=== PATIENT | female | born 1950 ===

== ENCOUNTER 2025-02-21 15:16 | Outpatient (REF) | payer MEDICARE, BC, SELFPAY ==
--- OUTSIDE RECORDS SUMMARY | 2025-02-21 09:44 | XMS_ITS | Clinical Summary ---
Author Organization [facility] Address [address] [address] Care Team Providers Care Oracle Manager Name Role Phone Rabia Cantu Primary Care Provider [phone] Allergies Active Allergy Reactions Criticality Noted Date Comments Cefazolin 08/07/2017 Doxycycline 08/07/2017 Famciclovir 08/07/2017 Gabapentin 08/07/2017 Hydroxyzine Hcl 08/07/2017 Latex, Natural Rubber 08/07/2017 Levothyroxine 08/07/2017 Lisinopril 08/07/2017 Pantoprazole 08/07/2017 Penicillins 08/07/2017 Sulfa (Sulfonamide Antibiotics) 04/2017 Medications ranitidine (ZANTAC) 150 MG capsule 7 Active SYNTHROID 100 mcg tablet 7 Active butalbital-acet aminophen-caff 50-300-40 mg cap 7 Active losartan (COZAAR) 100 MG tablet 0 9 Active famotidine (PEPCID) 10 MG tablet TAKE 1 TABLET BY MOUTH TWICE DAILY 0 Active busPIRone (BUSPAR) 10 MG tablet 7 Active busPIRone (BUSPAR) 10 MG tablet TAKE 1 TABLET BY MOUTH ONCE DAILY 0 Active clotrimazole (LOTRIMIN) 1 % cream APPLY 1 APPLICATION TOPICALLY BID 0 Active mupirocin (BACTROBAN) 2 % ointment APPLY TOPICALLY TO OPEN SKIN TWICE DAILY TO PROMOTE HEALING 0 Active omeprazole (PriLOSEC) 20 MG capsule TAKE 1 CAPSULE BY MOUTH TWICE DAILY FOR 30 DAYS 0 Active Social History Tobacco Use Types Packs/Day Years Used Date Smoking Tobacco: Former Smokeless Tobacco: Never Tobacco Cessation:Counseling Given: No Comments No Sex and Gender Information Value Date Recorded Sex Assigned at Not on file Legal Sex Female 2:51 PM EST Gender Identity Not on file Sexual Orientation Not on file Last Filed Vital Signs Vital Sign Reading Time Taken Comments Blood Pressure 128/76 03/04/2020 4:32 PM EDT Pulse 80 03/04/2020 4:32 PM EDT Temperature 36.3 C (97.4 F) 03/04/2020 4:32 PM EDT Respiratory Rate 16 03/04/2020 4:32 PM EDT Oxygen Saturation 97% 03/04/2020 4:32 PM EDT Inhaled Oxygen Concentration - - Weight 77.1 kg (170 lb) 04/14/2019 12:02 PM EDT Height - - Body Mass Index - - Plan of Treatment Health Maintenance Due Date Last Done Comments Depression: Screening Annual ly using PHQ-2/9 in Adults 18 yrs or above (or HM Modifier)([facility]) 1967 Hepatitis C Virus Infection in Adolescents and Adults: Screening (or Modifier) ([facility]) 1967 TANI Screening: Once using ST OP-BANG Questionnaire for Adults with Conditions or high BMI([facility]) 1967 SDOH Screening Reminder: Niecy yesikallfred for all adults ([facility]) 1967 Tobacco Smoking Cessation: i n Adults excluding Women: Behavioral and Pharmacotherapy Interventions ([facility]) 1967 DTaP/Tdap/Td Vaccines ([facility]) (1 - Tdap) 02/12/1968 Lung Cancer: Screening Annua lly in adults aged 50 to 80 years (or HM Modifiers)([facility]) 1999 Pneumococcal Vaccination Scr eening: Patients 50+ yrs of age ([facility]) (1 of 1 - PCV) 1999 Zoster/Shingles Vaccine Seri es Screening: Adults aged 18+ yrs (or HM Modifiers)([facility]) (1 of 2) 1999 Osteoporosis Screening to Pr event Fractures: Women aged 65 years+ ([facility]) 2014 RSV Vaccines (1 - 1-dose 75+ series) 02/12/2024 COVID-19 Vaccine Screening: Initial Series and Booster Status ([facility]) ( - 2023- season) 2024 Flu Vaccination: Ages 65+: Y early High Dose Recommended (or Modifier)([facility]) 03/30/2025 Medical Devices Not on file Insurance MEDICARE [facility] Care Teams Oracle Manager Relationship Specialty Start Date End Date Rabia Cantu PA [address] [place] [address] PCP - Elevator Mechanic 04/14/19
== END 2025-02-21 15:17 | disposition home or self-care (01) ==
LOC: HO.HOSX 15:16
PROVIDERS: Visit Provider Orthopaedic Surgery
DX: Z13.89 Encounter for screening for other disorder (principal)

== ENCOUNTER 2025-03-20 09:50 | Outpatient (REF) | payer MEDICARE, BC, SELFPAY ==
--- OUTSIDE RECORDS SUMMARY | 2025-03-21 10:30 | XMS_ITS | Clinical Summary ---
Author Organization [facility] Address [id number] [place] [phone] Care Team Providers Care Geology Associate Name Role Phone Marta Méndez MD Primary Care Provider [phone] Surgical History Surgery Date Site/Laterality Comments JOINT [...] Documents on File Type Date Recorded Patient Cash Person Expl anation Health Care Decision (hx) 11/03/2021 KAITLIN CARRASCO DIRECTIVE Care Teams Geology Associate Relationship Specialty Start Date End Date Marta Méndez MD [address] [place] PCP - General Internal Medicine 05/04/17
--- OUTSIDE RECORDS SUMMARY | 2025-03-21 10:30 | XMS_ITS | Clinical Summary ---
Author Organization [employer] [facility] Address [address] [place] [address] Care Team Providers Care Tool And Die Maker Level Five Name Role Phone Rabia Cantu Primary Care Provider [phone] Allergies Active Allergy Reactions Criticality Noted Date [...] Adults 18 yrs or above (or HM Modifier)([facility]) 1967 Hepatitis C Virus Infection in Adolescents and Adults: Screening (or Modifier) ([facility]) 1967 TANI Screening: Once using ST OP-BANG Questionnaire for Adults with Conditions or high BMI([facility]) 1967 SDOH Screening Reminder: Niecy yesikallfred for all adults ([facility]) 1967 Tobacco Smoking Cessation: i n Adults excluding Women: Behavioral and Pharmacotherapy Interventions ([facility]) 1967 DTaP/Tdap/Td Vaccines ([facility]) (1 - Tdap) 02/12/1968 Lung Cancer: Screening Annua lly in adults aged 50 to 80 years (or HM Modifiers)([facility]) 1999 Pneumococcal Vaccination Scr eening: Patients 50+ yrs of age ([facility]) (1 of 1 - PCV) 1999 Zoster/Shingles Vaccine Seri es Screening: Adults aged 18+ yrs (or HM Modifiers)([facility]) (1 of 2) 1999 Osteoporosis Screening to Pr event Fractures: Women aged 65 years+ ([facility]) 2014 RSV Vaccines (1 - 1-dose 75+ series) 02/12/2024 COVID-19 Vaccine Screening: Initial Series and Booster Status ([facility]) ( - 2023- season) 2024 Flu Vaccination: Ages 65+: Y early High Dose Recommended (or Modifier)([facility]) 03/30/2025 Medical Devices Not on file Insurance MEDICARE [facility] Care Teams Tool And Die Maker Level Five Relationship Specialty Start Date End Date Rabia Cantu PA [address] [place] [address] PCP - Analytics Associate 04/14/19
--- OUTSIDE RECORDS SUMMARY | 2025-03-21 10:30 | XMS_ITS | Encounter Summary ---
Author Organization [facility] Address [address] [place] [address] Care Team Providers Care Hair Spring Winder Name Role Phone Rabia Cantu Primary Care Provider [phone] Murray Jimenez MD Unavailable Nancy Gotti MD Unavailable [phone] Encounter Details Date Type Department Care Team (Late st Contact Info) Description 02/23/2023 Scanned Document [facility] [address] [phone] Murray Jimenez MD [address] [place] [place] [id number] Social History Tobacco Use Types Packs/Day Years [...] Orientation Heterosexual (straight) 01/12 10:53 AM EDT COVID-19 Exposure Response Date Recorded In the last 10 days, have yo u been in contact with someone who was confirmed or suspected to have Coronavirus/COVID-19? No / Unsure 02/02/2023 5:44 AM EDT documented as of this encounter Plan of Treatment Upcoming Encounters Date Type Department Care Team (Late st Contact Info) Description 06/20/2025 10:00 AM EDT Office Visit [facility] [address] [phone] Murray Jimenez MD [address] [place] [phone] documented as of this encounter Visit Diagnoses Not on filedocumented in this encounter Care Teams Hair Spring Winder Relationship Specialty Start Date End Date Rabia Cantu PA [address] [place] [address] PCP - General Family Medicine 01/12/23 Murray Jimenez MD [address] [place] [phone] Surgery, Orthopedic 01/12/23 Nancy Gotti MD [address] [address] Dermatology 01/14/23 documented as of this encounter
--- OUTSIDE RECORDS SUMMARY | 2025-03-21 10:30 | XMS_ITS | Clinical Summary ---
Author Organization [facility] Address [address] [place], [place] [id number] Phone Care Team Providers Care Editorial Director Name Role Phone Marta Méndez MD Primary [...] topic Medical Devices Not on file Insurance [facility] MEDICARE PART A & B Member Subscriber Plan / Payer (Ef fective 2014-Present) Name:Marycarmen Regalado Member ID:[id number] Relation to Subscriber:Self Name:Marycarmen Regalado Subscriber ID:[id number] Payer ID:[id number] Group ID:Not on file Type:Medicare Address: [facility] [employer] [email or web address] [address] [place] [address] [facility] MEDICARE PART A & B MEDICARE PART A & B MEDICARE PART A & B [facility] MEDICARE PART A & B [facility] MEDICARE PART A & B [facility] MEDICARE PART A & B MEDICARE PART A & B [facility] MEDICARE PART A & B Member Subscriber Plan / Payer ( fective 2014-Present) Name:Marycarmen Regalado Member ID:[id number] Relation to Subscriber:Self Name:Marycarmen Regalado Subscriber ID:[id number] Payer ID:[id number] Group ID:Not on file Type:Medicare Address: [facility] [employer] [email or web address] [address] [place] [address] Care Teams Editorial Director Relationship Specialty Start Date End Date Marta Méndez MD [address] [place] [address] PCP - General 10/12/16 Additional Source Comments The information contained in this document represents components of the legal health record. It is not the complete legal health record.[facility]
--- OUTSIDE RECORDS SUMMARY | 2025-03-21 10:31 | XMS_ITS | Clinical Summary ---
Author Organization [facility] Address [address] [place] [address] Care Team Providers Care Safety And Security Manager Name Role Phone Marta Méndez MD Primary [...] (ZANTAC) 150 MG capsule 0 06/22/2017 Active Zttsxngubi-GTCX-Edk feine 50-300-40 MG CAPS 0 06/01/2017 Active [...] age to complete this topic Care Teams Safety And Security Manager Relationship Specialty Start Date End Date Marta Méndez MD [address] [place] [phone] PCP - General Internal Medicine 05/04/17
== END 2025-03-20 09:51 | disposition home or self-care (01) ==
LOC: HO.HOSX 09:50
PROVIDERS: Visit Provider Orthopaedic Surgery
DX: M25.552 Pain in left hip (principal); Z79.899 Other long term (current) drug therapy
CPT/HCPCS: 99212

== ENCOUNTER 2025-03-20 13:34 | Outpatient (AMB) | payer MEDICARE, BC, SELFPAY ==
--- OUTSIDE RECORDS SUMMARY | 2025-03-16 23:59 | XMS_ITS | Continuity of Care Document ---
Author Organization [facility] Address [address] [place] [address]- Care Team Providers Care Front Office Administrator Name Role Phone Lenny NEUMANN, Aniceto Primary Care Physician Encounter [facility] Date(s): 02/14/25 - 03/16/25 [facility] [address], [place] [address] Encounter Type: Triage Allergies, Adverse Reactions, Alerts Substance Criticality Severity Reaction Reaction Severity Status doxycycline 1 Active nitrofurantoin 2 Act noe lisinopril Active gabapentin Active penicillins Active sulfa drugs Active Famvir Active Ancef rash Active hydrOXYzine hydrochloride Active pantoprazole Levothyroxine s odium 50mcg tablet Active Latex Active 1hives 2rash Immunizations Given and Recorded Vaccine Date Status Refusal Reason pneumococcal 23-valent vaccine 1 06/07/23 Given SARS-CoV-2 (COVID-19) mRNA-1273 vaccine 08/14/21 R ecorded SARS-CoV-2 (COVID-19) mRNA-1273 vaccine 12/23/20 R ecorded SARS-CoV-2 (COVID-19) mRNA-1273 vaccine 10/25/20 R ecorded influenza virus vaccine, inactivated 05/24/19 Lucio rded pneumococcal 13-valent vaccine 2 12/26/18 Given tetanus-diphtheria toxoids (Td) 04/30/11 Given 1Result Comment: [facility] [id number] 2Result Comment: [facility] [id number] Medications Acetaminophen 0 Refills, Maintenance, 08/20/21 1:51:00 PM EST, Partial fill upon patient request if the prescription is for a schedule II opioid drug. Start Date: 08/20/21 Status: Ordered Repeat number: 1 busPIRone 10 mg oral tablet 1, tablet, By Mouth, Daily, # 90 tablet, Refills 3, Tot. Refills 3, Maintenance, 10/20/24 11:16:00 AM EST, Route to Pharmacy Electronically, [facility] #[id number], 150, cm, 10/20/24 10:44:00 EST, Height, 79.5, kg, 04/21/23 15:22:00 EDT, Dry Weight Start Date: 10/20/24 Status: Ordered Quantity: 90.0 Unit: tablet Repeat number: 4 capsaicin 0.025% topical cream 1 application, Topically, 2 times a day, avoid contact with face and eyes to affected area, # 45 Gm, 3 Refills, Acute 02/14/26 6:00:00 PM EDT, 02/14/25 1:06:00 PM EDT, Cream, [facility] #[id number], Partial fill upon patient request if the prescription is for a schedule II opioid drug., 1 application Topically 2 times a day,Instr:avoid contact with face and eyes; to affected area, 150, cm, 02/14/25 12:36:00 EDT, Height, 79.5, kg, 12/27/24 15:56:00 EDT, Dry Weight Start Date: 02/14/25 Stop Date: 02/14/26 Status: Ordered Quantity: 45.0 Unit: g Repeat number: 4 Dupixent Pre-filled Syringe Subcutaneous Infusion, Once, PRN Rx by Daly THIBODEAUX security project manager, 0 Refills, Maintenance, 01/26/23 12:55:00 PM EDT, Partial fill upon patient request if the prescription is for a schedule II opioid drug. Start Date: 01/26/23 Status: Ordered Repeat number: 1 famotidine 20 mg oral tablet 20 mg, 1, tablet, By Mouth, 2 times a day, # 180 tablet, Refills 0, Tot. Refills 0, Maintenance, 02/14/25 1:17:00 PM EDT, Route to Pharmacy Electronically, [facility] #[id number], Partial fill upon patient request if the prescription is for a schedule II opioid drug., 150, cm, 02/14/25 12:36:00EDT, Height, 79.5, kg, 12/27/24 15:56:00 EDT, Dry Weight Start Date: 02/14/25 Status: Ordered Quantity: 180.0 Unit: tablet Repeat number: 1 Fioricet oral capsule 1 capsule, By Mouth, Every 4 hours, PRN as needed, # 9 capsule, 0 Refills, Maintenance, 10/20/24 11:25:00 AM EST, Capsule, [facility] #[id number], 1 capsule By Mouth Every 4 hours,PRN:as needed, 150, cm, 10/20/24 10:44:00 EST, Height, 79.5, kg, 04/21/23 15:22:00 EDT, Dry Weight Start Date: 10/20/24 Status: Ordered Quantity: 9.0 Unit: capsule Repeat number: 1 Leidy Cream Leidy Cream, Refills 0, Maintenance, 07/13/23 3:21:00 PM EST, Supply Start Date: 07/13/23 Status: Ordered Repeat number: 1 LORazepam 0.5 mg oral tablet 1 -2 tablet, By Mouth, crew caller to Procedure, # 5 tablet, 0 Refills, Soft Stop, 08/05/23 12:10:00 PM EST, Tablet, [facility] #[id number], Partial fill upon patient request if the prescription is for a schedule II opioid drug., 150, cm, 07/27/23 16:14:00 EST, Height, 79.5, kg, 04/21/23 15:22:00 EDT, Dry Weight Start Date: 08/05/23 Status: Ordered Quantity: 5.0 Unit: tablet Repeat number: 1 losartan 25 mg oral tablet 25 mg, 1, tablet, By Mouth, Daily, # 90 tablet, Refills 2, Tot. Refills 2, Maintenance, 12/19/24 4:31:00 PM EDT, Route to Pharmacy Electronically, [facility] #[id number], Partial fill upon patient request if the prescription is for a schedule II opioid drug., 150, cm, 12/19/24 16:30:00 EDT, Height, 79.5, kg, 04/21/23 15:22:00 EDT, Dry Weight Start Date: 12/19/24 Status: Ordered Quantity: 90.0 Unit: tablet Repeat number: 3 Multivitamin Daily, 0 Refills, Maintenance, 12/19/18 3:00:09 PM EDT Start Date: 12/19/18 Status: Ordered Repeat number: 1 nystatin topical [id number] u/gm cream 1 application, Topically, 2 times a day, apply under breasts, # 30 Gm, 3 Refills, Acute 10/06/25 8:00:00 AM EST, 02/01/25 5:19:00 PM EDT, Cream, [facility] #[id number], Partial fill upon patient request if the prescription is for a schedule II opioid drug., 1 application Topically 2 times a day,Instr:apply under breasts, 150, cm, 01/05/25 16:38:00 EDT, Height, 79.5, kg, 12/27/24 15:56:00 EDT, Dry Weight Start Date: 02/01/25 Stop Date: 10/06/25 Status: Ordered Quantity: 30.0 Unit: g Repeat number: 4 Indications: Tinea corporis; pantoprazole 20 mg oral delayed release tablet 1 tablet = 20 mg, By Mouth, Daily, # 90 tablet, 3 Refills, Maintenance, 12/21/24 9:41:00 PM EDT, CR Tablet, 150, cm, 12/19/24 16:30:00 EDT, Height, 79.5, kg, 04/21/23 15:22:00 EDT, Dry Weight Start Date: 12/21/24 Status: Ordered Quantity: 90.0 Unit: tablet Repeat number: 4 Synthroid 0.1 mg oral tablet 1 tablet = 100 mcg, By Mouth, Daily, Brand name medically necessary no substitutions emergency supply until mail order comes in, # 90 tablet, 1 Refills, Maintenance, 02/06/25 11:19:00 AM EDT, [facility], 150, cm, 01/05/25 16:38:00 EDT, Height, 79.5, kg, 12/27/24 15:56:00 EDT, Dry Weight Start Date: 02/06/25 Stop Date: 08/05/25 Status: Ordered Quantity: 90.0 Unit: tablet Repeat number: 2 traMADol 50 mg oral tablet 0.5 tablet = 25 mg, By Mouth, Every 8 hours, PRN Pain , Moderate, # 42 tablet, 0 Refills, Maintenance, 01/31/25 1:18:00 PM EDT, [facility] #[id number], Partial fill upon patient request if the prescription is for a schedule II opioid drug., 150, cm, 01/05/25 16:38:00 EDT, Height, 79.5, kg, 12/27/24 15:56:00 EDT, Dry Weight Start Date: 01/31/25 Stop Date: 02/28/25 Status: Ordered Quantity: 42.0 Unit: tablet Repeat number: 1 triamcinolone 0.025% topical cream 1 applicator, Topically, 2 times a day, apply a thin film, # 60 Gm, 1 Refills, Maintenance, :28:00 PM EDT, Cream, [facility] #[id number], 1 applicator Topically 2 times a day,Instr:apply a thin film, 150, cm, 12/19/24 16:12:00 EDT, Height, 79.5, kg, 04/21/23 15:22:00 EDT, Dry Weight Start Date: 12/19/24 Status: Ordered Quantity: 60.0 Unit: g Repeat number: 2 Vitamin D3 5000 intl units oral tablet 1 tablet = 125 mcg, By Mouth, Daily, # 30 tablet, 0 Refills, Maintenance, 03/04/23 5:00:00 PM EDT, Tablet, [facility] #[id number], Partial fill upon patient request if the prescription is for a schedule II opioid drug., 154.94, cm, 02/22/23 8:55:00 EDT, Height, 85.5, kg, 02/21/23 3:45:00 EDT, Dry Weight Start Date: 03/04/23 Status: Ordered Quantity: 30.0 Unit: tablet Repeat number: 1 Problem List Condition Confirmation Course Effective Dates Status H ealth Status Informant Trigger finger of right hand Confirmed Active Leiomyoma- s/p removal from [facility] in 1998 1 Confirmed Active Carpal tunnel syndrome Confirmed Active Stage 2 chronic kidney disease Confirmed Active Decreased hearing Confirmed Active Depression Confirmed Active Family history of thyroid problem Confirmed Active Femur fracture, left Confirmed Active Fracture of femur Confirmed Active GERD (gastroesophageal reflux disease) Confirmed Active MAYKEL (generalized anxiety disorder) Confirmed Active Glaucoma Confirmed Active History of knee replacement- needs abx prior to invasive procedures Confirmed Active Hyperlipidemia Confirmed Active Hypertension Confirmed Active Hypothyroidism Confirmed Active Hypothyroidism Confirmed Active Lichen planus Confirmed Active Lichenoid dermatitis Confirmed Active Migraines Confirmed Active Osteoarthritis 2, 3 Confirmed Active Osteoarthritis of left hip Confirmed Active Osteopenia Confirmed Active Osteoporosis Confirmed Active Chronic pain of left lower extremity Confirmed Active Recurrent kidney stones Confirmed Active Severe obesity Confirmed Active 1s/p GI bleed prior to resection 2c4-c7 with posterior osteophytes 3bilateral knees Social History Social History Type Response Smoking Status Former smoker; Other : quit smoking 1999; entered on: 11/26/14 Sex Sex Representation Female (finding) Implantable Device List Procedure Provider Procedure Date Device Type Site Phacoemulsification Cataract with Yandel Basilio MD 06/18/20 Unknown Eye Left Device Identifier Serial Number Lot or Batch Number Manufacturing Date Expiration Date Distinct Identification Code MRI Safety Implantable Status Assigning Authority Unknown [id number] Unknown Unknown 06/29/23 Unknown Unknown Active Unknown Procedure Provider Procedure Date Device Type Site Phacoemulsification Cataract with Yandel Basilio MD 05/24/20 Unknown Eye Right Device Identifier Serial Number Lot or Batch Number Manufacturing Date Expiration Date Distinct Identification Code MRI Safety Implantable Status Assigning Authority Unknown [id number] Unknown Unknown 03/29/24 Unknown Unknown Active Unknown Patient Care team information Care Team Personnel Name: Aniceto Galvez NP Position: [facility] PCO Associate Professional Member Role: PCP Address: [address] [place] [address] Telecom: Name: Agatha Jimenez RN Position: [facility] SN RN Member Role: Primary Care Nurse Care Team Related Persons Name: LOGAN PENN Name: FRANCIS COLLIER Name: ANAT COLLIER Insurance Providers Guarantor name: HIWOT COLLIER [facility] Information #: 1 Payer: MEDICARE B Payer Identifier: NA Member Number: [id number] Group Number: [id number] Subscriber Identifier: [id number] Relationship to Subscriber: self Coverage Type: NA Coverage Verification Date: NA Telecom: NA Address: Health Plan Information #: 2 Payer: [facility] Payer Identifier: NA Member Number: [id number] Group Number: [id number] Subscriber Identifier: [id number] Relationship to Subscriber: self Coverage Type: Medicare Other Coverage Verification Date: NA Telecom: NA Address: NA
[2025-03-20 13:54] VITALS: BMI 29.3
--- NOTE | 2025-03-20 13:54 | A.OFFVIS_ITS ---
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 The patient did undergo left total knee replacement surgery several years ago. She subsequently suffered a left total knee arthroplasty periprosthetic fracture which was treated with a lateral femoral plate. Apparently that plate fixation failed and she subsequently underwent revision fracture surgery involving a retrograde nail at [facility]. She describes her hip pain as sharp in nature. Allergies Penicillins Allergy (Severe, Verified 03/20/25 13:56) Unconscious Sulfa (Sulfonamide Antibiotics) Allergy (Severe, Verified 03/20/25 13:56) Unknown latex Allergy (Mild, Verified 03/20/25 13:56) Rash metals Allergy (Unknown, Uncoded 05/05/23 13:35) Unknown Medication List - Last Reconciled 03/20/25 by Mike Lou MD buspirone 10 mg PO DAILY famotidine 20 mg PO BID losartan 25 mg PO DAILY metoprolol tartrate 50 mg PO DAILY tramadol 25 mg PO Q8H PRN Physical Exam Vital Signs: BMI result Body Mass Index 29.3 Extrem Other: Left hip examination shows decreased range of motion when compared to her right hip, pain with range of motion, no tenderness over her bursa Results Reviewed Results Reviewed: X-rays of the patient's left hip show end-stage degenerative joint disease with grade 4 [id number] arthritis Assessment & Plan Assessment & Plan (1) Left hip pain: Code(s): M25.552 - Pain in left hip Category: Medical Plan Ms. Regalado presents with left hip pain due to end-stage degenerative joint disease. I had a lengthy discussion with the patient regarding the treatment options. I did recommend that she be treated at a tertiary care center due to the complexity of her combination of degenerative joint disease and a distal femur fracture. Most likely the patient's retrograde nail will need to be removed and replaced with a shorter nail or some other type of fixation to prevent recurrent femoral fracture after undergoing total hip replacement surgery. The patient states that she will contact the [facility] office for a follow-up appointment. Feel free to call me at any time should questions regarding her orthopedic management arise. I spent 21 minutes in reviewing the patient's records and imaging studies, seeing the patient and documenting in the medical record. Orders: Orders XR hip LT min 2V Today M25.552 - Pain in left hip Coding Level of Care Code Est Pt Level 3 (70416) Complex EM visit Add On G2211 Diagnoses Left hip pain M25.552
--- OUTSIDE RECORDS SUMMARY | 2025-03-20 14:43 | XMS_ITS | Clinical Summary ---
Author Organization [facility] Address [address] [place] [id number] Care Team Providers Care Reel Man Name Role Phone Marta Méndez MD Primary Care Provider [phone] Surgical History Surgery Date Site/Laterality Comments JOINT REPLACEMENT PROCEDURE:JOINT REPLACEMENT Medical History Medical History Date Comments Arthritis DX:Arthritis Migraine headache DX:Migraine he adache Kidney stones DX:Kidney stones Rheumatoid arthritis (CMS/HCC V24, CMS/HCC V28) DX:Rheumatoid arthritis (HCC) Family History Medical History Relation Name Comments Heart disease Mother Relation Name Status Comments Mother Social History Tobacco Use Types Packs/Day Years Used Date Smoking Tobacco: Never Assessed Comments Unknown Sex and Gender Information Value Date Recorded Sex Assigned at Not on file Legal Sex Female 8:37 AM EST Gender Identity Not on file Sexual Orientation Not on file Obstetrics History Plan of Treatment Health Maintenance Due Date Last Done Comments DTaP,Tdap,and Td Vaccines (1 - Tdap) 02/12/1968 Pneumococcal Vaccine: 50+ Ye ars (1 of 1 - PCV) 1999 Zoster Vaccines (1 of 2) 1999 Falls Risk Assessment 08/02/2022 Hepatitis C Screening 08/02/2022 Osteoporosis Screening (Bone Density Screening) 08/02/2022 Social Influencers of Health Screening 08/02/2022 RSV Immunization Adult Patie nts (1 - 1-dose 75+ series) 02/12/2024 COVID-19 Vaccine ( - 2023-2 5 season) 2024 Depression Screening 08/30/2024 Influenza Vaccine (#1) 2025 HIB Vaccines Aged Out No longer eligi ble based on patient's age to complete this topic HPV Vaccines Aged Out No longer eligi ble based on patient's age to complete this topic Hepatitis A Vaccines Aged Out No long er eligible based on patient's age to complete this topic Hepatitis B Vaccines Aged Out No long er eligible based on patient's age to complete this topic IPV Vaccines Aged Out No longer eligi ble based on patient's age to complete this topic MMR Vaccines Aged Out No longer eligi ble based on patient's age to complete this topic Meningococcal ACWY Vaccine Aged Out N o longer eligible based on patient's age to complete this topic Meningococcal B Vaccine Aged Out No l onger eligible based on patient's age to complete this topic RSV Immunization Patients Un nancy 20 months Aged Out No longer eligible b ased on patient's age to complete this topic Varicella Vaccines Aged Out No longer eligible based on patient's age to complete this topic Advance Directives Documents on File Type Date Recorded 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
--- OUTSIDE RECORDS SUMMARY | 2025-03-20 14:43 | XMS_ITS | Clinical Summary ---
Author Organization [facility] Address [address] [place] [address] Care Team Providers Care Heddler Name Role Phone Marta Méndez MD Primary Care Provider Allergies Active Allergy Reactions Criticality Noted Date Comments Cefazolin 08/07/2017 Doxycycline 08/07/2017 Famciclovir 08/07/2017 Gabapentin 08/07/2017 Hydroxyzine 08/07/2017 Latex 05/07/2017 Levothyroxine 08/07/2017 Lisinopril 05/07/2017 Pantoprazole 08/07/2017 Penicillins 05/07/2017 Sulfa Antibiotics 05/07/2017 Medications Medication Sig Dispensed Refills Start Date End Date Status busPIRone (BUSPAR) 10 MG tablet 0 03/25/2017 Active cloNIDine (CATAPRES) tablet 0.1 mg 0 03/02/2017 Active folic acid (FOLVITE) tablet 1 mg 0 04/21/2017 Active furosemide (LASIX) 20 MG tablet take 1 tablet by mouth once daily 0 03/21/2017 Active SYNTHROID 100 MCG tablet 0 04/17/2017 Active mupirocin (BACTROBAN) 2 % ointment 0 02/10/2017 Active methocarbamol (ROBAXIN-750) 750 MG tablet Take 1 tablet (750 mg total) by mouth 3 (three) times a day as needed (Take 1 tab q 8 hrs prn spasms). 45 tablet 1 06/04/2017 Active Additional Information Patient not taking.Reason: Other, Reported on 06/14/2020 levofloxacin (LEVAQUIN) 250 MG tablet 0 05/26/2017 Active ranitidine (ZANTAC) 150 MG capsule 0 06/22/2017 Active Jzmodykxbh-OZJK-Qcy feine 50-300-40 MG CAPS 0 06/01/2017 Active cyclobenzaprine (FLEXERIL) 5 MG tablet TK 1 T PO BID 0 06/12/2020 Active losartan (COZAAR) 100 MG tablet TK 1 T PO D 0 04/08/2020 Active tiZANidine (ZANAFLEX) 2 MG tablet TK 1 T PO TID PRF MUSCLE SPASM 0 05/08/2020 Active busPIRone (BUSPAR) 10 MG tablet TAKE 1 TABLET BY MOUTH ONCE DAILY 0 03/25/2017 Active Active Problems Problem Noted Date Diagnosed Date Strain of muscle of right groin region 0 Family History Medical History Relation Name Comments Heart disease Mother Relation Name Status Comments Mother Social History Tobacco Use Types Packs/Day Years Used Date Smoking Tobacco: Never Assessed Sex and Gender Information Value Date Recorded Sex Assigned at Not on file Gender Identity Not on file Sexual Orientation Not on file Job Start Date Occupation Industry Not on file Not on file Not on file Last Filed Vital Signs Vital Sign Reading Time Taken Comments Blood Pressure - - Pulse - - Temperature - - Respiratory Rate - - Oxygen Saturation - - Inhaled Oxygen Concentration - - Weight 77.1 kg (170 lb) 05/07/2017 2:19 PM EDT Height 157.5 cm (5' 2 ) 05/07/2017 2:19 PM EDT Body Mass Index 31.09 05/07/2017 2:19 PM EDT Plan of Treatment Health Maintenance Due Date Last Done Comments Hepatitis C Screening 1949 COVID-19 Vaccine (#1) 1949 Depression Screening 1961 Preventative Health Evaluation 1967 DTap / Tdap / Td (1 - Tdap) 02/12/1968 Shingrix-Zoster Vaccine (1 of 2) 1999 Fall Risk Assessment 2014 Osteoporosis Screening (DEXA Scan) 2014 Pneumococcal Vaccine (1 of 1 - PCV) 2014 RSV Adult > 60+ Yrs or Pregn ant (1 - 1-dose 75+ series) 02/12/2024 Influenza Vaccine (#1) 2025 Hepatitis B Vaccines Aged Out No long er eligible based on patient's age to complete this topic RSV Ped < 20 months Aged Out No longe r eligible based on patient's age to complete this topic Care Teams Heddler Relationship Specialty Start Date End Date Marta Méndez MD [address] [place] [phone] PCP - General Internal Medicine 05/04/17
--- OUTSIDE RECORDS SUMMARY | 2025-03-20 14:43 | XMS_ITS | Clinical Summary ---
Author Organization [facility] Address [address] [place] [id number] Care Team Providers Care Manager Retention Name Role Phone Rabia Cantu Primary Care Provider [phone] Murray Jimenez MD Unavailable [phone] Nancy Gotti MD Unavailable Allergies Active Allergy Reactions Criticality Noted Date Comments Cefazolin Rash/Dermatitis Low 08/07/2017 Famciclovir GI Intolerance/Nausea/Vomiting Low 08/07/2017 Gabapentin GI Intolerance/Nausea/Vomiting Low 08/07/2017 Hydroxyzine GI Intolerance/Nausea/Vomiting Low 08/07/2017 Latex Itching Low 01/13/2023 Levothyroxine Unknown/Patient and Family Unable to Define Medium 08/07/2017 Nitrofurantoin GI Intolerance/Nausea/Vomiting Low 02/02/2023 rash Pantoprazole Unknown/Patient and Family Unable to Define Medium 08/07/2017 Penicillins Rash/Dermatitis Low 01/13/2023 Sulfa Antibiotics Shortness Of Breath High 3 Tetracyclines & Related Rash/Dermatitis Low 023 Medications busPIRone (BUSPAR) 10 MG tablet Take 1 tablet (10 mg total) by mouth nightly. 3 Active fluticasone (Flonase Allergy Relief) 50 mcg/spray nasal spray into each nostril daily as needed. 3 Active levothyroxine (Synthroid) 100 MCG tablet Take 1 tablet (100 mcg total) by mouth every morning. 3 Active meloxicam (MOBIC) 15 MG tablet Take 1 tablet (15 mg total) by mouth every morning. 3 Active Metoprolol Succinate 25 MG Capsule ER 24 Hour Sprinkle Take 50 mg by mouth every morning. 3 Active PANTOprazole (PROTONIX) 20 MG tablet Take 1 tablet (20 mg total) by mouth every morning. 3 Active VITAMIN D PO Take 3,500 Int'l Units/L by mouth every morning. Active butalbital-acetam inophen-caffeine- codeine (FioriCET WITH CODEINE) 40-704-79-30 MG capsule Take 1 capsule by mouth 4 times daily (every 6 hours) as needed for migraine. Max Daily Amount: 4 capsules Active butalbital-acetam inophen-caffeine (FioriCET, ESGIC) 50-325-40 mg tablet Take 1 tablet by mouth 4 times daily (every 6 hours) as needed for headaches. Max: 6 capsules/table ts in 24 hours Active Dupilumab (DUPIXENT SC) Inject 1 vial under the skin every 14 days (2 weeks). Active fexofenadine (DAISY) 180 MG tablet Take 1 tablet (180 mg total) by mouth every morning. Administer with water only; do not administer with fruit juices. Active acetaminophen (TYLENOL) 500 MG tablet Take 1 tablet (500 mg total) by mouth 4 times daily (every 6 hours) as needed for mild pain. Active melatonin 3 MG Tab tablet Take 1 tablet (3 mg total) by mouth nightly. Active benzonatate (TESSALON) 100 MG capsule TAKE 1-2 CAPSULES BY MOUTH 3 TIMES A DAY NEEDED FOR COUGH 3 Active cefixime (SUPRAX) 400 MG capsule TAKE 1 CAPSULE BY MOUTH DAILY FOR 10 DAYS 3 Active cholecalciferol (VITAMIN D3) 125 MCG (5000 UT) tablet Take 1 tablet (5,000 Units total) by mouth daily. 3 Active LORazepam (ATIVAN) 0.5 MG tablet 3 Active predniSONE (DELTASONE) 50 MG tablet TAKE 1 TABLET BY MOUTH DAILY FOR 5 DAYS 3 Active Dupixent 300 MG/2ML pen injector 3 Active metoPROLOL SUCCINATE (TOPROL-XL) 25 MG 24 hr tablet Take 1 tablet (25 mg total) by mouth daily. 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 11.2 mL 3 Active doxycycline (VIBRA-TABS) 100 MG tabletIndications :Chronic osteomyelitis (HCC) Take 1 tablet (100 mg total) by mouth 2 (two) times a day. 60 tablet 3 3 Active doxycycline (VIBRA-TABS) 100 MG tabletIndications :Chronic osteomyelitis (HCC) Take 1 tablet (100 mg total) by mouth daily. 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 20 tablet 3 Active azithromycin (ZITHROMAX) 250 MG tabletIndications :Strep throat Take 2 tablets by mouth on day 1 followed by 1 tablet by mouth daily on days 2 through 5. 6 tablet 3 Active SUPPLY DME MISCIndications:C losed displaced supracondylar fracture of distal end of left femur without intracondylar extension with nonunion LEFT HEEL INSERT 1 each 3 Active cholecalciferol (CHOLECALCIFEROL) 125 MCG (5000 UT) capsuleIndication s: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 TAKE 1 CAPSULE BY MOUTH DAILY 60 capsule 1 05/07/202 4 Active cholecalciferol (VITAMIN D3) 125 MCG (5000 UT) capsuleIndication s: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 Take 1 capsule (5,000 Units total) by mouth daily. 90 capsule 1 4 Active Active Problems Problem Noted Date Diagnosed Date Closed fracture of distal en d of left femur with nonunion, unspecified fracture morphology, subsequent encounter 02/02/2023 Closed displaced supracondyl ar fracture of distal end of left femur without intracondylar extension with nonunion 01/14/2023 Assessment & Plan (01/14/2023 12:31 PM EDT): Surgery planned on left femur for treatment of nonunion with bone graft with Dr. Jimenez on 01-26-23 Abnormal finding of blood chemistry, unspecified 01/14/2023 Mild intermittent asthma without complication Overview (01/14/2023): No specialist Primary hypertension 01/14/2023 Assessment & Plan (01/14/2023 12:31 PM EDT): Continue current medication . 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 Never 02/02/2023 Q2: How many drinks containi ng alcohol do you have on a typical day when you are drinking? Patient does not drink Q3: How often do you have si x or more drinks on one occasion? Never 02/02/2023 Comments Unknown Sex and Gender Information Value Date Recorded Sex Assigned at Female 01/12/2023 10:10 AM EDT Legal Sex Female 10:19 AM EDT Gender Identity Female 01/12/2023 10:10 AM EDT Sexual Orientation Heterosexual (straight) 01/12 10:53 AM EDT Last Filed Vital Signs Vital Sign Reading Time Taken Comments Blood Pressure 132/88 02/05/2023 10:00 AM EDT Pulse 78 02/05/2023 10:00 AM EDT Temperature 37 C (98.6 F) 02/05/2023 10:00 AM EDT Respiratory Rate 16 02/05/2023 10:00 AM EDT Oxygen Saturation 96% 02/05/2023 10:00 AM EDT Inhaled Oxygen Concentration - - Weight 88.7 kg (195 lb 9.6 oz) 02/02/2023 1:48 P M EDT Height 149.9 cm (4' 11 ) 02/02/2023 1:48 PM EDT Body Mass Index 39.51 02/02/2023 1:48 PM EDT Plan of Treatment Upcoming Encounters Date Type Department Care Team (Late st Contact Info) Description 06/20/2025 10:00 AM EDT [facility] Visit [facility] [address] [phone] Murray Jimenez MD [address] [place] [id number] Health Maintenance Due Date Last Done Comments Hepatitis C Virus Screening 1950 DTaP/Tdap/Td Vaccines (1 - Tdap) 02/12/1968 Pneumococcal Vaccines 50+ (1 of 2 - PCV) 02/12/1968 Zoster (Shingles) Vaccine (1 of 2) 02/12/1968 DXA Bone Density (Females,Ages 65 and older) 2014 RSV Vaccine 60 years and older and Patients (1 - 1-dose 75+ series) 02/12/2024 COVID-19 Vaccine ( - 2023-2 5 season) 2024 08/14/2021, 12/23/2020, 10/25/2020 Influenza Vaccine 03/30/2025 05/24/2019 Hepatitis B Vaccines Aged Out No long er eligible based on patient's age to complete this topic Medical Devices Implanted Type Area Collating Machine Operator Device Identifier Shelf Expiration Date Model / Serial / Lot 04.233.233s Nail Fem Dist 320mm Rtrgd 10d Bend Intramedullary Rfn-Adv Ti - [id number] Implanted:Qty: 1 on 02/02/2023 by Murray Jimenez MD at [facility] Nail/Will Left: Femur DEPUY SYNTHES - A SELVIN AND 03/29/2026 04.233.23 3S / / [id number] 42.231.280 Screw Bone Optilink 80mm 5mm Slftp Va Strdr - [id number] Implanted:Qty: 1 on 02/02/2023 by Murray Jimenez MD at [facility] Screw Left: Femur DEPUY SYNTHES - A SELVIN AND 42.231.28 0 / / .127.160 Screw Bone T15 60mm Ss 3.5mm Slftp Lock Va Strdr Nonst - [id number] Implanted:Qty: 1 on 02/02/2023 by Murray Jimenez MD at [facility] Screw Left: Femur DEPUY SYNTHES - A SELVIN AND 02.127.16 0 / / .127.154 Screw Bone T15 54mm Ss 3.5mm Slftp Lock Va Strdr Nonst - [id number] Implanted:Qty: 1 on 02/02/2023 by Murray Jimenez MD at [facility] Screw Left: Femur DEPUY SYNTHES - A SELVIN AND 02.127.15 4 .127.158 Screw Bone T15 58mm Ss 3.5mm Slftp Lock Va Strdr Nonst - [id number] Implanted:Qty: 1 on 02/02/2023 by Murray Jimenez MD at [facility] Screw Left: Femur DEPUY SYNTHES - A SELVIN AND 02.127.15 8 .045.034 Screw Bone X25 34mm 5mm Lock Intramedullary Nail - [id number] Implanted:Qty: 1 on 02/02/2023 by Murray Jimenez MD at [facility] Screw Left: Femur DEPUY SYNTHES - A SELVIN AND 04.045.03 4 .045.036 Screw Bone X25 36mm 5mm Lock Intramedullary Nail - [id number] Implanted:Qty: 1 on 02/02/2023 by Murray Jimenez MD at [facility] Screw Left: Femur DEPUY SYNTHES - A SELVIN AND 04.045.03 6 .045.034 Screw Bone X25 34mm 5mm Lock Intramedullary Nail - [id number] Implanted:Qty: 1 on 02/02/2023 by Murray Jimenez MD at [facility] Screw Left: Femur DEPUY SYNTHES - A SELVIN AND 04.045.03 4 .045.042 Screw Bone 42mm 5mm Lock - [id number] Implanted:Qty: 1 on 02/02/2023 by Murray Jimenez MD at [facility] Screw Left: Femur DEPUY SYNTHES - A SELVIN AND 04.045.04 2 .045.044 Screw Bone 44mm 5mm Lock - [id number] Implanted:Qty: 1 on 02/02/2023 by Murray Jimenez MD at [facility] Screw Left: Femur DEPUY SYNTHES - A SELVIN AND 04.045.04 4 .045.052 Screw Bone 52mm 5mm Lock Intramedullary Nail - [id number] Implanted:Qty: 1 on 02/02/2023 by Murray Jimenez MD at [facility] Screw Left: Femur DEPUY SYNTHES - A SELVIN AND 04.045.05 2 / 04.045.078 Screw Bone X25 78mm Gallegos 5mm Lock Light Grn 4.2mm Drill - [id number] Implanted:Qty: 1 on 02/02/2023 by Murray Jimenez MD at [facility] Screw Left: Femur DEPUY SYNTHES - A SELVIN AND 04.045.07 8 42.231.255 Screw Bone Optilink 55mm 5mm Slftp Va Strdr - [id number] Implanted:Qty: 1 on 02/02/2023 by Murray Jimenez MD at [facility] Screw Left: Femur DEPUY SYNTHES - A SELVIN AND 42.231.25 5 .233.105s Washer Left Lock Attach 10d Orthopedic Ss Rfna Sterl - [id number] Implanted:Qty: 1 on 02/02/2023 by Murray Jimenez MD at [facility] Washer/Nu t Left: Femur DEPUY SYNTHES - A SELVIN AND 05/29/2032 02.233.10 5S / / [id number] Insurance MEDICARE PART A & B [facility] MEDICARE PART A & B [facility] MEDICARE PART A & B [facility] Advance Directives * Full Code (Latest Code Status on File) Date Activated Date Inactivated Comments 02/02/2023 11:27 AM * Full Code Date Activated Date Inactivated Comments 02/02/2023 5:58 AM 02/02/2023 11:27 AM Healthcare Agents on File Name Relationship Healthcare Agent Farrahde alisha Communication Fabricio Reed Adult child 4. Next of Kin ( Spouse, Adult Child, Parent, Adult Sibling, Grandparent) Eladio Regalado Adult child 4. Next of Kin ( Spouse, Adult Child, Parent, Adult Sibling, Grandparent) Care Teams Manager Retention Relationship Specialty Start Date End Date Rabia Cantu PA [facility] [place] [address] PCP - General Family Medicine 01/12/23 Murray Jimenez MD [address] [place] [address] Surgery, Orthopedic 01/12/23 Nancy Gotti MD [address] [place] [id number] Dermatology 01/14/23
--- OUTSIDE RECORDS SUMMARY | 2025-03-20 14:43 | XMS_ITS | Clinical Summary ---
Author Organization [facility] Address [address] [place], [place] [id number] Phone Care Team Providers Care Cloth Laminating Supervisor Name Role Phone Marta Méndez MD Primary Care Provider + Medications predniSONE (DELTASONE) 10 MG tabletIndicatio ns:Lichenoid dermatitis Orally take 50mg/5 tablets week 1, 40mg/4 tablets week 2, 30mg/3 tablets week 3, etc. 100 tablet 10/20/2016 Active Social History Tobacco Use Types Packs/Day Years Used Date Smoking Tobacco: Never Assessed Education Answer Date Recorded Are you interested in more education? Not on carly e 12/25/2022 Are you concerned about learning? Not on file 12/25/2022 No 12/25/2022 No 12/25/2022 Digital Access Answer Date Recorded No 01/25/2023 No 01/25/2023 Reliable internet access at home? Not on file 01/25/2023 Device with a working camera? Not on file Comments Unknown Sex and Gender Information Value Date Recorded Sex Assigned at Not on file Legal Sex Female 10:00 AM EST Gender Identity Not on file Sexual Orientation Not on file Plan of Treatment Health Maintenance Due Date Last Done Comments Adult Td,Tdap Booster 1950 LIPID PANEL 1950 DEPRESSION SCREENING 1961 SMOKING Hx and SMOKELESS TOB ACCO SCREENING 1962 HEPATITIS C SCREENING 1967 PNEUMOCOCCAL VACCINES (50+ y ears) (1 of 1 - PCV) 1999 ZOSTER VACCINES (1 of 2) 1999 OSTEOPOROSIS SCREENING INITI AL (ONE-TIME) 2014 RSV VACCINE (1 - 1-dose 75+ series) 02/12/2024 COVID-19 VACCINE (2 - 2023-2 5 season) 2024 10/25/2020 HEPATITIS A VACCINES Aged Out No long er eligible based on patient's age to complete this topic HIB VACCINES Aged Out No longer eligi ble based on patient's age to complete this topic MENINGOCOCCAL VACCINES (ACWY) Aged Out No longer eligible based on patient's age to complete this topic MENINGOCOCCAL VACCINES (B) Aged Out N o longer eligible based on patient's age to complete this topic Medical Devices Not on file Insurance [facility] MEDICARE PART A & B [facility] MEDICARE PART A & B MEDICARE PART A & B MEDICARE PART A & B [facility] MEDICARE PART A & B [facility] MEDICARE PART A & B [facility] MEDICARE PART A & B MEDICARE PART A & B [facility] MEDICARE PART A & B Care Teams Cloth Laminating Supervisor Relationship Specialty Start Date End Date Marta Méndez MD [address] [place] [address] PCP - General 10/12/16 Additional Source Comments The information contained in this document represents components of the legal health record. It is not the complete legal health record.[facility]
--- OUTSIDE RECORDS SUMMARY | 2025-03-20 14:43 | XMS_ITS ---
Author Name [facility] History of Medication Use Medication Directions Dispensed Refills Start Date End Date Stat us betamethasone acetate-betamethason e sodium phosphate (CELESTONE) injection 12 mg 12 mg, Intra-articular, Once PRN Procedure, Starting on Wed02/02/24 at 1000, For 1 dose 02/02/2024 02/02/2024 completed azithromycin (ZITHROMAX) 250 MG tablet Take 2 tablets by mouth on day 1 followed by 1 tablet by mouth daily on days 2 through 5. 04/22/2023 05/07/2023 active doxycycline (VIBRA-TABS) 100 MG tablet Take 1 tablet (100 mg total) by mouth 2 (two) times a day. 02/25/2023 active minocycline (MINOCIN) 100 MG capsule Take 1 capsule (100 mg total) by mouth 2 (two) times a day. 02/05/2023 04/07/2023 active metoPROLOL SUCCINATE (TOPROL-XL) 25 MG 24 hr tablet Take 1 tablet (25 mg total) by mouth daily. 11/24/2022 active Metoprolol Succinate 25 MG Capsule ER 24 Hour Sprinkle Take 25 mg by mouth every morning. 11/24/2022 active predniSONE (DELTASONE) 50 MG tablet TAKE 1 TABLET BY MOUTH DAILY FOR 5 DAYS 11/09/2022 active busPIRone (BUSPAR) 10 MG tablet Take 1 tablet (10 mg total) by mouth nightly. 11/02/2022 05/02/2023 active benzonatate (TESSALON) 100 MG capsule TAKE 1-2 CAPSULES BY MOUTH 3 TIMES A DAY NEEDED FOR COUGH 10/30/2022 active cefixime (SUPRAX) 400 MG capsule TAKE 1 CAPSULE BY MOUTH DAILY FOR 10 DAYS 10/27/2022 active meloxicam (MOBIC) 15 MG tablet Take 1 tablet (15 mg total) by mouth every morning. 10/06/2022 active acetaminophen (TYLENOL) 500 MG tablet Take 1 tablet (500 mg total) by mouth 4 times daily (every 6 hours) as needed for mild pain. active melatonin 3 MG Tab tablet Take 1 tablet (3 mg total) by mouth nightly. active Allergies Allergen Reaction Severity Comment Documented Date Source Statu s NITROFURANTOIN GI INTOLERANCE/NAUS EA/VOMITING rash 02/02/2023 [facility] active TETRACYCLINES & RELATED RASH/DERMATITIS 01/13/2023 [facility] active PANTOPRAZOLE UNKNOWN/PATIENT AND FAMILY UNABLE TO DEFINE 08/07/2017 [facility] active CEFAZOLIN RASH/DERMATITIS [facility] FAMCICLOVIR GI INTOLERANCE/NAUS EA/VOMITING [facility] GABAPENTIN GI INTOLERANCE/NAUS EA/VOMITING [facility] HYDROXYZINE GI INTOLERANCE/NAUS EA/VOMITING [facility] LATEX ITCHING [facility] LEVOTHYROXINE UNKNOWN/PATIENT AND FAMILY UNABLE TO DEFINE [facility] PENICILLINS RASH/DERMATITIS [facility] SULFA ANTIBIOTICS SHORTNESS OF BREATH [facility] Problems Problem Status Onset Date Problem Type Date of Resolution Source 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, unspecified fracture morphology, subsequent encounter active 2023-02-02 ProblemAct [facility] Anxiety active 2023-01-14 ProblemAct [facility] Primary hypertension active 2023-01-14 ProblemAct [facility] Hypothyroid active 2023-01-14 ProblemAct [facility] Obesity (BMI 30-39.9) active 2023-01-14 ProblemAct [facility] 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 active 2023-01-14 ProblemAct [facility] Gastroesophageal reflux disease without esophagitis active 2023-01-14 ProblemAct [facility] 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 cerebral infarction and without status migrainosus, not intractable active 2023-01-14 ProblemAct [facility] Mild intermittent asthma without complication active 2023-01-14 ProblemAct [facility] Iliotibial band syndrome of left side active EncounterDiagnosisAct [facility] Allergic rhinitis active 2023-01-14 ProblemAct [facility] Abnormal finding of blood chemistry, unspecified active 2023-01-14 ProblemAct [facility] Encounters Encounter Type Encounter Reason Primary Diagnosis Location Date Ambulatory [facility] 12/13/2024 Ambulatory Displaced supracondylar fracture without intracondylar extension of lower end of left femur, subsequent encounter for closed fracture with nonunion Displaced supracondylar fracture without intracondylar extension of lower end of left femur, subsequent encounter for closed fracture with nonunion [facility] 12/13/2024 Ambulatory [facility] 05/03/2024 Ambulatory Displaced supracondylar fracture without intracondylar extension of lower end of left femur, subsequent encounter for closed fracture with nonunion Displaced supracondylar fracture without intracondylar extension of lower end of left femur, subsequent encounter for closed fracture with nonunion [facility] 05/03/2024 Ambulatory [facility] 02/02/2024 Ambulatory Displaced supracondylar fracture without intracondylar extension of lower end of left femur, subsequent encounter for closed fracture with nonunion Displaced supracondylar fracture without intracondylar extension of lower end of left femur, subsequent encounter for closed fracture with nonunion [facility] 02/02/2024 Ambulatory Displaced supracondylar fracture without intracondylar extension of lower end of left femur, subsequent encounter for closed fracture with nonunion Displaced supracondylar fracture without intracondylar extension of lower end of left femur, subsequent encounter for closed fracture with nonunion [facility] 09/16/2023 Ambulatory Displaced supracondylar fracture without intracondylar extension of lower end of left femur, subsequent encounter for closed fracture with nonunion Displaced supracondylar fracture without intracondylar extension of lower end of left femur, subsequent encounter for closed fracture with nonunion [facility] 08/04/2023 Ambulatory Displaced supracondylar fracture without intracondylar extension of lower end of left femur, subsequent encounter for closed fracture with nonunion Displaced supracondylar fracture without intracondylar extension of lower end of left femur, subsequent encounter for closed fracture with nonunion [facility] 08/04/2023 Ambulatory Displaced supracondylar fracture without intracondylar extension of lower end of left femur, subsequent encounter for closed fracture with nonunion Displaced supracondylar fracture without intracondylar extension of lower end of left femur, subsequent encounter for closed fracture with nonunion [facility] 05/05/2023 Ambulatory Displaced supracondylar fracture without intracondylar extension of lower end of left femur, subsequent encounter for closed fracture with nonunion Displaced supracondylar fracture without intracondylar extension of lower end of left femur, subsequent encounter for closed fracture with nonunion [facility] 05/05/2023 Ambulatory Displaced supracondylar fracture without intracondylar extension of lower end of left femur, subsequent encounter for closed fracture with nonunion [facility] 03/24/2023 Ambulatory Displaced supracondylar fracture without intracondylar extension of lower end of left femur, subsequent encounter for closed fracture with nonunion [facility] 03/24/2023 Ambulatory Displaced supracondylar fracture without intracondylar extension of lower end of left femur, subsequent encounter for closed fracture with nonunion [facility] 02/17/2023 Ambulatory Displaced supracondylar fracture without intracondylar extension of lower end of left femur, subsequent encounter for closed fracture with nonunion [facility] 02/17/2023 Inpatient Unspecified frac ture of lower end of left femur, subsequent encounter for closed fracture with nonunion [facility] 02/02/2023 Ambulatory Displaced supracondylar fracture without intracondylar extension of lower end of left femur, subsequent encounter for closed fracture with nonunion [facility] 01/14/2023 Care Team Organization Name Specialty Phone Email Start Date End Da te [facility] BRITANY [facility] 12/16/2024 01/14/2025 [facility] 11/15/2023 [facility] ESTHER GARG [facility] 01/14/2023 01/15/20 25 [facility] ESTHER GARG [facility] 01/14/2023 01/19/20 23
== END 2025-03-20 14:13 | disposition home or self-care (01) ==
LOC: HO.HOS 13:34
PROVIDERS: PCP Internal Medicine; Visit Provider Orthopaedic Surgery
DX: M25.552 Pain in left hip (principal)
CPT/HCPCS: 99213; G2211